=== PATIENT | male | born 1995 | race Caucasian/White ===

== ENCOUNTER 2022-09-12 14:12 | Emergency (ER) | payer BC ==
--- OUTSIDE RECORDS SUMMARY | 2022-09-12 14:15 | XMS REPORT | Continuity of Care Document ---
:1995 Author Organization [facility] t Address [address] [place] [address] Care Team Providers Name Role Phone Sanjay Nicolas Attending Clinician Unavailable Quinten MILLER, Mónica Villa Attending Clinician Unavailable BRE WEINER Attending Clinician Unavailable JUANJO TEMPLE Attending Clinician Unavailable Payers Payer Name Policy Type Policy Number Effective Date Expiration Date S ource OUT OF STATE [id number] BCBS - PPO - BCBS [place] [address] [id number] 2021 Common Spiri t [employer] of 00:00:00 - [place] [facility] Center Problems Condition Condition Condition Status Onset Resolution Last Treating Co mments Source Name Details Category Date Date Treatment Clinician Date [id number] Other Problem Active Common chronic Spirit pain [facility] [id number] Hypercalce Problem Active Com mon jose Spirit - [facility] [id number] Low back Problem Active Comm on pain, Spirit unspecifie - [facility] Allergies, Adverse Reactions, Alerts This patient has no known allergies or adverse reactions. Social History Social Habit Start Date Stop Date Quantity Comments Source History [facility] Alcohol Frequency of Medi cine History [facility] Alcohol Std Drinks of Med icine History [facility] Alcohol Binge of Medicine History of Tobacco Common Spirit - Use [facility] Sex Assigned At Common Sp yamila - [facility] Alcohol intake 2022-08-03 2022-08-03 Ex-drinker [facility] Col lege 00:00:00 00:00:00 (finding) of Medicine Cigarette 2021-09-29 2021-09-29 [facility] pack-years 00:00:00 00:00:00 of Medicine Tobacco use and 2021-09-29 2021-09-29 Smokeless tobacco Ba or [place] exposure 00:00:00 00:00:00 non-user of Medicine Alcohol Comment 2021-07-30 2021-07-30 I drink 2 mixed [facility] or [facility] 00:00:00 00:00:00 drinks once every of Medi cine 2 weeks Exposure to 2021-07-19 2021-07-29 Not sure [facility] SARS-CoV-2 (event) 00:00:00 15:14:00 of Med icine Smoking Status Start Date Stop Date Source Never smoked tobacco [facility] ege of Medicine Medications Ordered Filled Start Stop Current Ordering Indication Dosage Frequency Signature Comments Components Source Medication Medication Date Date Medication? Clinician (SIG) Name Name celecoxib 2022- Yes [id number] 100mg Take 1 [facility] (CELEBREX) -11-02 capsule by Co llege 100 MG 00:00: 04:59 mouth 2 of capsule 00 :00 times Medicin daily as e needed for Pain (back pain) for up to 90 days. cyclobenzap 2022- Yes [id number] 10mg Take 1 [facility] -11-02 Tablet by [facility] (FLEXERIL) 00:00: 04:59 mouth 3 of 10 MG 00 :00 times Medicin tablet daily as e needed (severe pain or muscle spasms) for up to 90 days. celecoxib Yes [id number] 100mg Take 1 [facility] (CELEBREX) 3-31 capsule by Col lege 100 MG 00:00: mouth 2 of capsule 00 times Medicin daily as e needed for Pain (back pain). cyclobenzap Yes [id number] 10mg Take 1 [facility] 3-31 Tablet by [place] ([facility]) 00:00: mouth 3 of 10 MG 00 times Medicin tablet daily as e needed (severe pain or muscle spasms). celecoxib Yes [id number] 100mg Take 1 [facility] (CELEBREX) 3-31 capsule by Col lege 100 MG 00:00: mouth 2 of capsule 00 times Medicin daily as e needed for Pain (back pain). cyclobenzap 2021-0 Yes [id number] 10mg Take 1 [facility] 3-31 Tablet by [place] ([facility]) 00:00: mouth 3 of 10 MG 00 times Medicin tablet daily as e needed (severe pain or muscle spasms). celecoxib 2022- No [id number] 100mg Take 1 [facility] (CELEBREX) 3-- capsule by Co llege 100 MG 00:00: 00:00 mouth 2 of capsule 00 :00 times Medicin daily as e needed for Pain (back pain). cyclobenzap 0 2022- No [id number] 10mg Take 1 [facility] 3-31 - Tablet by [place] ([facility]) 00:00: 00:00 mouth 3 of 10 MG 00 :00 times Medicin tablet daily as e needed (severe pain or muscle spasms). cyclobenzap 2021- No 10mg Take 10 mg [facility] rine 2-17 07-30 by mouth [place] ([facility]) 00:00: 00:00 nightly as of 10 MG 00 :00 needed. Medicin tablet e Cyclobenzap Cyclobenzap No 1{table QD Cyclobenza rine HCl 10 rine HCl 10 t_at_be nany HCl MG MG dtime_a 10 MG s_neede d} Tylenol Tylenol No Tylenol Extra Extra Extra Strength Strength Strength 500 MG 500 MG 500 MG Cyclobenzap Cyclobenzap No 1{table QD Cyclobenza rine HCl 10 rine HCl 10 t_at_be nany HCl MG MG dtime_a 10 MG s_neede d} Tylenol Tylenol No Tylenol Extra Extra Extra Strength Strength Strength 500 MG 500 MG 500 MG Cyclobenzap Cyclobenzap No 1{table QD Cyclobenza rine HCl 10 rine HCl 10 t_at_be nany HCl MG MG dtime_a 10 MG s_neede d} Tylenol Tylenol No Tylenol Extra Extra Extra Strength Strength Strength 500 MG 500 MG 500 MG Celecoxib Celecoxib No Celecoxib Tylenol Tylenol No Tylenol Extra Extra Extra Strength Strength Strength 500 MG 500 MG 500 MG Cyclobenzap Cyclobenzap No 1{table QD Cyclobenza rine HCl 10 rine HCl 10 t_at_be nany HCl MG MG dtime_a 10 MG s_neede d} Vital Signs Vital Name Observation Time Observation Value Comments Source Systolic blood 2022-08-03 20:08:00 109 mm[Hg] [facility] Medicine Diastolic blood 2022-08-03 20:08:00 72 mm[Hg] [facility] Medicine Heart rate 2022-08-03 20:08:00 104 /min [facility] Body temperature 2022-08-03 20:08:00 36.56 [facility] Respiratory rate 2022-08-03 20:08:00 16 /min [facility] Body height 2022-08-03 20:08:00 177.8 cm [facility] Body weight 2022-08-03 20:08:00 63.504 kg [facility] BMI 2022-08-03 20:08:00 20.09 kg/m2 [facility] Oxygen saturation in 2022-08-03 20:08:00 97 /min [facility] blood by [facility] Pulse oximetry Systolic blood 2021-09-29 20:05:00 129 mm[Hg] [facility] Medicine Diastolic blood 2021-09-29 20:05:00 81 mm[Hg] [facility] Medicine Heart rate 2021-09-29 20:05:00 114 /min [facility] Body temperature 2021-09-29 20:05:00 36.39 [facility] Body height 2021-09-29 20:05:00 177.8 cm [facility] Body weight 2021-09-29 20:05:00 63.504 [facility] BMI 2021-09-29 20:05:00 20.09 kg/m2 [facility] Oxygen saturation in 2021-09-29 20:05:00 98 /min [facility] Arterial blood by Medicine Pulse oximetry height 2021-08-18 16:00:00 70.5 [in_i] [facility] weight 2021-08-18 16:00:00 139.2 [lb_av] [facility] temperature 2021-08-18 16:00:00 99.7 [degF] [facility] bmi 2021-08-18 16:00:00 19.69 kg/m2 [facility] oximetry 2021-08-18 16:00:00 97 % [facility] respiratory rate 2021-08-18 16:00:00 17 /min Comm on [facility] blood pressure 2021-08-18 16:00:00 120 mm[Hg] [facility] systolic [facility] blood pressure 2021-08-18 16:00:00 72 mm[Hg] [facility] diastolic [facility] Systolic blood 2021-07-30 18:52:00 112 mm[Hg] [facility] pressure Medicine Diastolic blood 2021-07-30 18:52:00 72 mm[Hg] [facility] pressure Medicine Heart rate 2021-07-30 18:52:00 90 /min [facility] Body temperature 2021-07-30 18:52:00 36.22 [facility] Body height 2021-07-30 18:52:00 177.8 cm [facility] Body weight 2021-07-30 18:52:00 62.143 kg [facility] BMI 2021-07-30 18:52:00 19.66 kg/m2 [facility] height 2021-06-18 11:20:00 70.5 [in_i] [facility] weight 2021-06-18 11:20:00 143 [lb_av] [facility] temperature 2021-06-18 11:20:00 97 [degF] Common S [facility] bmi 2021-06-18 11:20:00 20.23 kg/m2 Common [facility] oximetry 2021-06-18 11:20:00 98 % [facility] respiratory rate 2021-06-18 11:20:00 16 /min Comm on [facility] blood pressure 2021-06-18 11:20:00 119 mm[Hg] Common [facility] - systolic [facility] blood pressure 2021-06-18 11:20:00 71 mm[Hg] Common [facility] - diastolic [facility] height 2020-12-31 16:00:00 70.5 [in_i] Common [facility] weight 2020-12-31 16:00:00 141.0 [lb_av] [facility] temperature 2020-12-31 16:00:00 98.1 [degF] Common [facility] bmi 2020-12-31 16:00:00 19.94 kg/m2 [facility] oximetry 2020-12-31 16:00:00 97 % Common [facility] respiratory rate 2020-12-31 16:00:00 16 /min Comm on [facility] blood pressure 2020-12-31 16:00:00 120 mm[Hg] Common [facility] - systolic [facility] blood pressure 2020-12-31 16:00:00 72 mm[Hg] Common [facility] - diastolic [facility] height 2020-09-03 15:50:00 70.5 [in_i] Common [facility] weight 2020-09-03 15:50:00 136.2 [lb_av] [facility] temperature 2020-09-03 15:50:00 97.3 [degF] [facility] bmi 2020-09-03 15:50:00 19.26 kg/m2 Common S [facility] oximetry 2020-09-03 15:50:00 96 % Common S pirit - [facility] respiratory rate 2020-09-03 15:50:00 17 /min Comm on Spirit - [facility] blood pressure 2020-09-03 15:50:00 118 mm[Hg] [facility] - systolic [facility] blood pressure 2020-09-03 15:50:00 61 mm[Hg] [facility] - diastolic [facility] Procedures Procedure Date / Time Performed Performing Clinician Kary zazueta HANDICAPPED ITA 2022-08-03 15:33:51 [facility] QUANTIFERON TB GOLD PLUS 2021-09-29 15:57:00 [place] [address] TUBES Medicine HEPATITIS B SURFACE AB 2021-09-29 15:57:00 [facility] HEPATITIS B SURFACE 2021-09-29 15:57:00 [facility] ANTIGEN Medicine HEPATITIS C ANTIBODY 2021-09-29 15:57:00 [facility] HEP B CORE ANTIBODY, 2021-09-29 15:57:00 [facility] QUANTIFERON TB GOLD PLUS 2021-09-29 15:44:47 [place] [address] TUBES Medicine HEPATITIS B SURFACE AB 2021-09-29 15:44:47 [facility] HEPATITIS B SURFACE 2021-09-29 15:44:47 [facility] ANTIGEN Medicine HEPATITIS C ANTIBODY 2021-09-29 15:44:47 [facility] HEP B CORE ANTIBODY, 2021-09-29 15:44:47 [facility] AMB REF TO RHEUMATOLOGY 2021-07-30 15:43:27 [facility] Plan of Care Planned Activity Planned Date Details Comments Source Future Scheduled 2022-08-03 COVID-19 Vaccine (#1) [facility] Test 17:39:48 [code = COVID-19 of Medicine Vaccine (#1)] Future Scheduled 2022-08-03 TETANUS SHOT (ADULT) [facility] Test 17:39:48 [code = TETANUS SHOT of [facility] cine (ADULT)] Future Scheduled 2022-08-03 Human immunodeficiency B [facility] Test 17:39:48 virus screening of Medicine (procedure) [code = 617629575] Future Scheduled 2022-08-03 FLU VACCINE > 6 MONTHS [employer] Test 17:39:48 [code = FLU VACCINE > 6 of M edicine MONTHS] Future Scheduled 2022-08-03 XR C-SPINE AP AND [facility] Test 16:05:25 LATERAL AND ODONTOID 3 of Me dicine VWS [code = 96143-7] Future Scheduled 2022-08-03 XR LUMBAR SPINE 2 VIEWS [facility] Test 16:05:08 AP AND LAT [[place] = [place] [address]-3] Future Scheduled 2022-08-03 XR THORACIC SPINE [facility] Test 16:04:54 (COMPLETE) [code = [place] [address]-4] Future Scheduled 2022-08-03 HANDICAPPED PLACARD Ordered: [employer] Test 15:33:51 [code = NOCPT] 08/03/2022 of Medicine Future Scheduled 2022-08-03 XR LUMBAR SPINE 2 VIEWS 1 Occurrences [facility] Test 15:33:51 AP AND LAT [code = [place] [address]-4] 08/03/2022 until 08/04/2023 Future Scheduled 2022-08-03 XR C-SPINE AP AND 1 Occurrences [employer] Test 15:33:51 LATERAL AND ODONTOID 3 starting of Me dicine VWS [code = 74292-4] 08/03/2022 until 08/04/2023 Future Scheduled 2022-08-03 XR THORACIC SPINE 1 Occurrences [employer] Test 15:33:51 (COMPLETE) [code = [place] [address]-0] 08/03/2022 until 08/03/2023 Future Scheduled 2021-09-29 Hepatitis C screening Ba [facility] Test 15:47:35 (procedure) [code = of Medic ine 278221276] Future Scheduled 2021-09-29 QUANTIFERON TB GOLD Ordered: [employer] Test 15:44:47 PLUS 4 TUBES [code = 09/29/2021 of [facility] 54351-7] Future Scheduled 2021-09-29 HEPATITIS B SURFACE AB Ordered: [employer] Test 15:44:47 QUANT [code = 37503-7] 09/29/2021 of Me dicine Future Scheduled 2021-09-29 HEPATITIS B SURFACE Ordered: [employer] Test 15:44:47 ANTIGEN [code = 5196-1] 09/29/2021 of M edicine Future Scheduled 2021-09-29 HEPATITIS C ANTIBODY Ordered: [employer] Test 15:44:47 [code = 04944-5] 09/29/2021 of Medicine Future Scheduled 2021-09-29 HEP B CORE ANTIBODY, Ordered: [employer] Test 15:44:47 TOTAL [code = 32029] 09/29/2021 of Medi cine Future Scheduled 2021-09-29 XR SACROILIAC JOINTS 1 Occurrences [employer] Test 15:44:47 (COMPLETE) [code = [place] [address]-7] 09/29/2021 until 09/29/2022 Future Scheduled 2021-09-29 XR HIPS BILATERAL AP 1 Occurrences [employer] Test 15:44:47 LATERAL W AP PELVIS starting of Medic ine [code = 73988-8] 09/29/2021 until 09/29/2022 Future Scheduled 2021-09-29 XR LUMBAR SPINE AP 1 Occurrences [employer] Test 15:44:47 LATERAL OBLIQUES starting of Medicine FLEXION AND EXTENSION 09/29/2021 until [code = 23116-3] 09/29/2022 Future Scheduled 2021-09-29 MRI SACRUM WO CONTRAST 1 Occurrences [facility] Test 15:44:47 [code = 06708] starting of Medicine 09/29/2021 until 09/29/2022 Future Scheduled 2021-09-29 MRI HIP RIGHT W WO 1 Occurrences [employer] Test 15:44:47 CONTRAST [code = 56444] starting of M edicine 09/29/2021 until 09/29/2022 Future Scheduled 2021-09-29 MRI HIP LEFT W WO 1 Occurrences [employer] Test 15:44:47 CONTRAST [code = 75357] starting of M edicine 09/29/2021 until 09/29/2022 Future Scheduled 2021-09-29 COVID-19 Vaccine (#1) [employer] Test 15:04:56 [code = COVID-19 of Medicine Vaccine (#1)] Future Scheduled 2021-09-29 TETANUS SHOT (ADULT) [employer] Test 15:04:56 [code = TETANUS SHOT of Medi cine (ADULT)] Future Scheduled 2021-09-29 Human immunodeficiency [facility] [employer] Test 15:04:56 virus screening of Medicine (procedure) [code = 963114252] Future Scheduled 2021-09-29 [facility] 15:04:56 [code = FLU VACCINE > 6 of M edicine MONTHS] Future Scheduled 2021-07-30 COVID-19 Vaccine (1) [facility] Test 13:50:38 [code = COVID-19 of Medicine Vaccine (1)] Future Scheduled 2021-07-30 TETANUS SHOT (ADULT) [facility] Test 13:50:38 [code = TETANUS SHOT of Medi cine (ADULT)] Future Scheduled 2021-07-30 Hepatitis C screening Ba [facility] Test 13:50:38 (procedure) [code = of Medic ine 710506050] Future Scheduled 2021-07-30 Human immunodeficiency B [facility] Test 13:50:38 virus screening of Medicine (procedure) [code = 618893305] Future Scheduled 2021-07-30 FLU VACCINE > 6 MONTHS B [facility] Test 13:50:38 [code = FLU VACCINE > 6 of M edicine MONTHS] Encounters Start End Encounter Admission Attending Care Care Encounter Source Date/Time Date/Time Type Type Clinicians Facility Department ID 2021-08-19 Outpatient Nicolas, [facility] [id number] Common 08:20:02 [facility] 2021-07-06 Outpatient Nicolas, [facility] [id number] Common 17:06:02 Sanjay [facility] 2021-06-18 Outpatient Nicolas, [facility] [id number] Common 11:23:02 Sanjay [facility] 2021 Outpatient Nicolas, [facility] [id number] Common 13:45:08 Sanjay 99028 [facility] 2021 Outpatient Nicolas, [facility] [id number] Common 12:52:13 Sanjay [id number] [facility] 2022-08-03 2022-08-03 Outpatient [facility] [id number] [facility] 16:05:25 16:05:25 [facility] e 2022-08-03 2022-08-03 Outpatient BCM BCM [id number] [facility] 16:05:08 16:05:08 [facility] 2022-08-03 2022-08-03 Outpatient BCM BCM [id number] [facility] 16:04:54 16:04:54 [facility] 2022-08-03 2022-08-03 Office Mónica Shipley BCM [id number] [facility] 14:45:00 15:30:00 Visit Daisy AMBULATOR [id number] College Y [id number] of [id number] Medi jada 370 e 2021-10-28 2021-10-28 Outpatient BCM BC [id number] [facility] 12:53:45 12:53:45 [facility] 2021-10-13 2021-10-13 Outpatient BCM [facility] [id number] [facility] 14:55:26 14:55:26 [facility] e 2021-10-13 2021-10-13 Outpatient BCM [facility] [id number] [facility] 14:43:56 14:43:56 Colleg [facility] Medicin e 2021-09-29 2021-09-29 Outpatient BCM [facility] [id number] [facility] 16:29:06 16:29:06 Colleg [facility] of Medicin e 2021-09-29 2021-09-29 Outpatient BCM [facility] [id number] [facility] 16:28:52 16:28:52 Colleg [facility] of Medicin e 2021-09-29 2021-09-29 Outpatient BCM [facility] [id number] [facility] 16:28:37 16:28:37 Colleg [facility] Medicin e 2021-09-29 2021-09-29 Office REGINE, BCM [id number] [place] [address] 14:58:14 16:19:19 Visit BRE AMBULATOR [id number] College Y [id number] of [id number] Medi jada 370 e 2021-09-16 2021-09-16 Outpatient POULOSE, BCM [facility] [id number] [facility] 13:24:08 13:33:26 BRE Ivan e of Medicin e 2021-08-18 2021-08-18 PREV VISIT STLMLC STLMLC [id number] Common 00:00:00 00:00:00 EST AGE Maxwell 16-39 - [facility] 2021-07-30 2021-07-30 Office JASON TEMPLE [id number] [facility] 13:19:31 15:22:03 Visit JUANJO AMBULATOR [id number] College Y [id number] of [id number] [facility] 805 e 2021-07-29 2021-07-29 (TEL) STLMLC STLMLC [id number] Co mmon 00:00:00 00:00:00 [facility] 2021-06-23 2021-06-23 (TEL) STLMLC STLMLC [id number] Co mmon 00:00:00 00:00:00 [facility] 2021-06-18 2021-06-18 OFFICE STLMLC STLMLC [id number] Co mmon 00:00:00 00:00:00 VISIT EST Spir it PT LEVEL 3 [facility] 2021-06-16 2021-06-16 (TEL) STLMLC STLMLC [id number] Co mmon 00:00:00 00:00:00 [facility] 2021-01-02 2021-01-02 (TEL) STLMLC STLMLC [id number] Co mmon 00:00:00 00:00:00 [facility] 2020-12-31 2020-12-31 OFFICE STLMLC STLMLC [id number] Co mmon 00:00:00 00:00:00 VISIT EST Spir it PT LEVEL 3 [facility] 2020-09-03 2020-09-03 OFFICE STLMLC STLMLC [id number] Co mmon 00:00:00 00:00:00 VISIT EST Spir it PT LEVEL 3 [facility] 2020-08-18 2020-08-18 (TEL) STLMLC STLMLC [id number] Co mmon 00:00:00 00:00:00 [facility] 2020-08-14 2020-08-14 [facility] [id number] Common 00:00:00 00:00:00 [facility] Results This patient has no known results.
[2022-09-12] MEDS ORDERED: LIDOCAINE 1% 20 ML MDV ONE (14:39)
[2022-09-12] MEDS ORDERED: BUPIVACAINE 0.5% PF 10 ML VIAL ONE (14:39)
[2022-09-12] MEDS ORDERED: AMOX/K CLAV 875 MG TAB ONE (14:39)
[2022-09-12] MEDS ORDERED: TDAP (DIPHTH,PERTUSS(ACELL),TET VAC) 0.5 ML VIAL IMVAC ONE (14:39)
--- NOTE | 2022-09-12 15:14 | EDPHYS ---
Physician Documentation [facility] Name: Senthil Velazquez Age: 27 yrs Sex: Male : 1995 Arrival Date: 09/12/2022 Time: 14:12 Bed 8 Private MD: ED Physician Gera Sarah HPI: 09/12 14:19 This 27 yrs old Male presents to ER via Unassigned with complaints of dogbite to finger.snw 14:26 pt with dogbite to index fingertip, medial nail pulled from nailbed. snw Historical: - Allergies: 14:38 No Known Allergies; eh3 - Home Meds: 14:38 Celebrex Oral for ankylosing spondylitis [Active]; Flexeril Oral for Pain Control eh3 [Active]; - PMHx: 14:39 Ankylosing spondylitis; eh3 - Immunization history:: Adult Immunizations not up to date, Last tetanus immunization: unknown. - Social history:: Smoking status: Patient denies any tobacco usage or history of. Patient uses alcohol, only on a social basis. ROS: 14:25 Constitutional: Negative for fever, chills, and weight loss, Eyes: Negative for injury, snw pain, redness, and discharge, ENT: Negative for injury, pain, and discharge, Neck: Negative for injury, pain, and swelling, Cardiovascular: Negative for chest pain, palpitations, and edema, Respiratory: Negative for shortness of breath, cough, wheezing, and pleuritic chest pain, Abdomen/GI: Negative for abdominal pain, nausea, vomiting, diarrhea, and constipation, Back: Negative for injury and pain, : Negative for injury, bleeding, discharge, and swelling, MS/Extremity: Negative for injury and deformity, Neuro: Negative for headache, weakness, numbness, tingling, and seizure, Psych: Negative for depression, anxiety, suicide ideation, homicidal ideation, and hallucinations. 14:25 Skin: Positive for avulsion, dogbite to finger. Exam: 14:42 Constitutional: This is a well developed, well nourished patient who is awake, alert, snw and in no acute distress. Head/Face: Normocephalic, atraumatic. Eyes: Pupils equal round and reactive to light, extra-ocular motions intact. Lids and lashes normal. Conjunctiva and sclera are non-icteric and not injected. Cornea within normal limits. Periorbital areas with no swelling, redness, or edema. ENT: Nares patent. No nasal discharge, no septal abnormalities noted. Tympanic membranes are normal and external auditory canals are clear. Oropharynx with no redness, swelling, or masses, exudates, or evidence of obstruction, uvula midline. Mucous membranes moist. Neck: Trachea midline, no thyromegaly or masses palpated, and no cervical lymphadenopathy. Supple, full range of motion without nuchal rigidity, or vertebral point tenderness. No Meningismus. Chest/axilla: Normal chest wall appearance and motion. Nontender with no deformity. No lesions are appreciated. Cardiovascular: Regular rate and rhythm with a normal S1 and S2. No gallops, murmurs, or rubs. Normal PMI, no JVD. No pulse deficits. Respiratory: Lungs have equal breath sounds bilaterally, clear to auscultation and percussion. No rales, rhonchi or wheezes noted. No increased work of breathing, no retractions or nasal flaring. Abdomen/GI: Soft, non-tender, with normal bowel sounds. No distension or tympany. No guarding or rebound. No evidence of tenderness throughout. Back: No spinal tenderness. No costovertebral tenderness. Full range of motion. MS/ Extremity: Pulses equal, no cyanosis. Neurovascular intact. Full, normal range of motion. Neuro: Awake and alert, GCS 15, oriented to person, place, time, and situation. Cranial nerves II-XII grossly intact. Motor strength 5/5 in all extremities. Sensory grossly intact. Cerebellar exam normal. Normal gait. Psych: Awake, alert, with orientation to person, place and time. Behavior, mood, and affect are within normal limits. 14:42 Skin: Appearance: normal except for affected area, injury, bite(s), deep, of the left index finger, nail avulsed from nailbed. Vital Signs: 14:36 BP 107 / 72; Pulse 86; Resp 20; Temp 97.7(IR); Pulse Ox 99% on R/A; Weight 63.5 kg; eh3 Height 5 ft. 10 in. ; 14:54 BP 107 / 72; Pulse 95; Resp 18; Pulse Ox 100% on R/A; Pain 8/10; ld1 14:36 Body Mass Index 20.09 (63.50 kg, 177.8 cm) eh3 14:54 Pain Scale: Adult ld1 Procedures: 14:43 Nerve block: (digital) of left index fingernail Medication: Lidocaine 1% without snw epinephrine Marcaine 0.5%, Amount: 6 mls were injected, Effect: the patient has resolution of the pain, Performed by Rosanne JAMESON Patient tolerated well. MDM: 14:18 Patient medically screened. snw 14:27 Differential diagnosis: closed fracture, nailbed damage, laceration, puncture wound. snw Data reviewed: vital signs, nurses notes. Counseling: I had a detailed discussion with the patient and/or guardian regarding: the historical points, exam findings, and any diagnostic results supporting the discharge/admit diagnosis, the need for outpatient follow up, for definitive care, to return to the emergency department if symptoms worsen or persist or if there are any questions or concerns that arise at home. Response to treatment: the patient's symptoms have markedly improved after treatment. Special discussion: I discussed in detail with the patient the higher chance of wound infection based on his presenting history. Based on the history and exam findings, there is no indication for further emergent testing or inpatient evaluation. I discussed with the patient/guardian the need to see the primary care provider for further evaluation of the symptoms. ED course: Police were notified and are searching for animal. 09/12 14:19 Order name: Suture Tray Setup; Complete Time: 14:37 snw Administered Medications: 14:37 Drug: Boostrix Tdap IM 0.5 ml Route: IM; Site: left deltoid; ld1 14:37 Drug: Bupivacaine Infiltration (0.5 %) 1 vials {Note: Administered by yanet Cantu JELLY FILTER TENDER.} Volume: 10 ml; Route: Infiltration; 14:37 Drug: Lidocaine Infiltration (1 %) 1 vials {Note: Administered by FNP. Pepe} ld1 Volume: 20 ml; Route: Infiltration; 14:37 Drug: Amoxicillin-Clavulanate PO 875 mg Route: PO; ld1 Disposition: 16:45 Co-signature as Attending Physician, Gera Sarah MD I agree with the assessment and kdr plan of care. Disposition Summary: 09/12/22 15:13 Discharge Ordered Location: Home snw Condition: Stable snw Diagnosis - Laceration without foreign body of left index finger with damage to nail snw Followup: snw - With: Emergency Department - When: As needed - Reason: Worsening of condition Followup: snw - With: Private Physician - When: 7 - 10 days - Reason: Staple/Suture removal Discharge Instructions: - Discharge Summary Sheet snw - Cast or Splint Care, Adult snw - Animal Bite, Adult snw Forms: - Work release form snw - Medication Reconciliation Form snw - Thank You Letter snw - Antibiotic Education snw - Prescription Opioid Use snw Prescriptions: - Augmentin 875-125 mg Oral Tablet - take 1 tablet by ORAL route every 12 hours for 10 days; 20 tablet; Refills: 0, snw Product Selection Permitted - Tramadol 50 mg Oral Tablet - take 1 tablet by ORAL route every 8 hours as needed; 12 tablet; Refills: 0, snw Product Selection Permitted Signatures: Gera Sarah MD MD [facility] Rosanne Watkins, ROSEANN-C JELLY FILTER TENDER-Csnw Ambar Hopkins RN RN ld1 Alma Seth RN RN eh3
--- NOTE | 2022-09-12 15:14 | ER ---
Nurse's Notes [facility] Name: Senthil Velazquez Age: 27 yrs Sex: Male : 1995 Arrival Date: 09/12/2022 Time: 14:12 Bed 8 Private MD: Diagnosis: Laceration without foreign body of left index finger with damage to nail Presentation: 09/12 14:36 Chief complaint: Patient states: stray dog bite [place] work. Coronavirus eh3 screen: Vaccine status: Patient reports being unvaccinated. Ebola Screen: No symptoms or risks identified at this time. Initial Sepsis Screen: Does the patient meet any 2 criteria? No. Patient's initial sepsis screen is negative. Does the patient have a suspected source of infection? Yes: Skin breakdown/wound. Risk Assessment: Do you want to hurt yourself or someone else? Patient reports no desire to harm self or others. Onset of symptoms was September 12, 2022. 14:36 Method Of Arrival: Ambulatory [facility] 14:36 Acuity: IONA 3 eh3 Triage Assessment: 14:39 Bite description: bite sustained to left index finger is from animal, by a dog, animal 3 information: vaccination(s) is unknown. General: Appears in no apparent distress. uncomfortable, Behavior is calm, cooperative, appropriate for age. Pain: Complains of pain in left hand. Historical: - Allergies: 14:38 No Known Allergies; eh3 - Home Meds: 14:38 Celebrex Oral for ankylosing spondylitis [Active]; Flexeril Oral for Pain Control eh3 [Active]; - PMHx: 14:39 Ankylosing spondylitis; eh3 - Immunization history:: Adult Immunizations not up to date, Last tetanus immunization: unknown. - Social history:: Smoking status: Patient denies any tobacco usage or history of. Patient uses alcohol, only on a social basis. Screenin:54 [facility] ED Fall Risk Assessment (Adult) History of falling in the last 3 months, ld1 including since admission No falls in past 3 months (0 pts). Abuse screen: Denies threats or abuse. Denies injuries from another. Nutritional screening: No deficits noted. Tuberculosis screening: No symptoms or risk factors identified. Assessment: 14:54 General: Appears in no apparent distress. comfortable, Behavior is calm, cooperative, ld1 appropriate for age. Pain: Complains of pain in right hand and left index fingernail and left hand and left index finger Pain does not radiate. Pain currently is 8 out of 10 on a pain scale. Quality of pain is described as throbbing. Neuro: Level of Consciousness is awake, alert, obeys commands, Oriented to person, place, time, situation. Cardiovascular: Capillary refill < 3 seconds Patient's skin is warm and dry. Respiratory: Airway is patent Respiratory effort is even, unlabored. GI: Abdomen is flat, non-distended. : No signs and/or symptoms were reported regarding the genitourinary system. EENT: No signs and/or symptoms were reported regarding the EENT system. Derm: Skin Skin is pink, warm \T\ dry. Vital Signs: 14:36 BP 107 / 72; Pulse 86; Resp 20; Temp 97.7(IR); Pulse Ox 99% on R/A; Weight 63.5 kg; eh3 Height 5 ft. 10 in. ; 14:54 BP 107 / 72; Pulse 95; Resp 18; Pulse Ox 100% on R/A; Pain 8/10; ld1 14:36 Body Mass Index 20.09 (63.50 kg, 177.8 cm) eh3 14:54 Pain Scale: Adult ld1 ED Course: 14:17 Patient arrived in ED. snw 14:18 Gera Sarah MD is Attending Physician. snw 14:18 Rosanne Watkins [facility]C [facility] snw 14:36 Ambar Hopkins, ROD is Primary Nurse. ld1 14:38 Triage completed. eh3 14:39 Arm band placed on. eh3 14:54 Patient has correct armband on for positive identification. Bed in low position. Call ld1 light in reach. Side rails up X2. Pulse ox on. NIBP on. Door closed. Noise minimized. Warm blanket given. 14:54 Assist provider with laceration repair on left hand Set up tray. Performed by Rosanne ld1 Roland JAMESON. 15:22 IV discontinued, intact, bleeding controlled, No redness/swelling at site. ld1 Administered Medications: 14:37 Drug: Boostrix Tdap IM 0.5 ml Route: IM; Site: left deltoid; ld1 14:37 Drug: Bupivacaine Infiltration (0.5 %) 1 vials {Note: Administered by yanet Cantu.} Volume: 10 ml; Route: Infiltration; 14:37 Drug: Lidocaine Infiltration (1 %) 1 vials {Note: Administered by FNP. Pepe} ld1 Volume: 20 ml; Route: Infiltration; 14:37 Drug: Amoxicillin-Clavulanate PO 875 mg Route: PO; ld1 Medication: 14:54 Vaccine Information Statement (VIS) provided today. Questions and/or concerns ld1 addressed. VIS edition date: September 12, 2022. Outcome: 15:13 Discharge ordered by MD. sheets 15:22 Discharged to home ambulatory. ld1 15:22 Condition: stable 15:22 Discharge instructions given to patient, Instructed on discharge instructions, follow up and referral plans. medication usage, Demonstrated understanding of instructions, follow-up care, medications, Prescriptions given X 2. 15:22 Patient left the ED. ld1 Signatures: Rosanne Watkins FNP-C FNP-Ambar Lord RN RN ld1 Alma Seth RN RN eh3
[2022-09-12 15:29] VITALS: BP 107/72; TEMP 97.7
[2022-09-12 15:35] VITALS: O2SAT 100
== END 2022-09-12 15:22 | disposition home or self-care (01) ==
LOC: ER 14:12
PROC: 0HQGXZZ Repair Left Hand Skin, External Approach (ICD-10-PCS; principal; 2022-09-12)
DX: S61.311A Laceration without foreign body of left index finger with damage to nail, initial encounter (principal); W54.0XXA Bitten by dog, initial encounter
CPT/HCPCS: 64450; 96372; 99284; 12001; J2001

== ENCOUNTER 2024-09-03 08:20 | Day surgery (SDC) | payer BC ==
[2024-09-03 08:31] LABS: Absolute Lymphocytes (CBC) 1.9 K/uL (0.7-4.9); Absolute Neutrophil 4.6 K/uL (1.8-8.0); Basophils % 0.7 % (0-1.3); Eosinophils % 4.3 % (0-4.4); Hematocrit 40.8 % (39.6-49.0); Hemoglobin 13.6 g/dL (13.6-17.9); Lymphocytes % 24.9 % (15.3-44.8); MCH 25.8 pg (27.0-35.0); MCHC 33.4 g/dL (32.0-36.0); MCV 77.2 fL (80-100); MPV 7.3 fL (7.6-11.3); Monocytes % 8.8 % (3.3-12.3); Neutrophils % 61.3 % (41.7-73.7); Nucleated Red Blood Cells % 0.1 % (0-0); Platelets 338 thou/uL (152-406); RBC Red Blood Cell Count 5.28 M/uL (4.33-5.43); Red Cell Distribution Width 15.8 % (12.1-15.2)
[2024-09-03 08:32] LABS: Absolute Basophils 0.1 K/uL (0-0.5); Absolute Eosinophils 0.3 K/uL (0-0.5); Absolute Monocytes 0.7 K/uL (0.1-1.3)
[2024-09-03] MEDS: Ringers Lactate 1,000 ML IV ONE (08:54)
[2024-09-03 09:03] LABS: Albumin 3.6 g/dL (3.4-5.0); Anion Gap 7.8 mEq/L (5.0-15.0); Bilirubin Direct 0.2 mg/dL (0-0.2); Bilirubin Indirect, Calculated 0.8 mg/dL (0.2-0.8); Globulin 3.6 g/dL (2.3-3.5); Potassium 3.8 mEq/L (3.5-5.1); Protein, Total 7.2 g/dL (6.4-8.2)
[2024-09-03] MEDS ORDERED: ONDANSETRON 4 MG/2 ML VIAL ONE (09:44)
[2024-09-03] MEDS ORDERED: dexAMETHasone 10 MG/ML VIAL ONE (09:44)
[2024-09-03] MEDS ORDERED: KETOROLAC 30 MG/ML INJ ONE (09:44)
[2024-09-03] MEDS ORDERED: ROCURONIUM 50 MG/5 ML VIAL IV ONE (09:44)
[2024-09-03] MEDS ORDERED: MIDAZOLAM HCL 2 MG/2 ML INJ ONE (09:44)
[2024-09-03] MEDS ORDERED: propofoL 200 MG/20 ML VIAL IV ONE (09:44)
[2024-09-03] MEDS ORDERED: FENTANYL CITR 100 MCG/2 ML ONE (09:44)
[2024-09-03] MEDS ORDERED: LIDOCAINE 2% MPF 5 ML VIAL ONE (09:44)
[2024-09-03] MEDS: CEFOXITIN SODIUM 1 GM/VIAL ONE (09:53)
[2024-09-03] MEDS: BUPIVACAINE 0.5% PF 10 ML VIAL ONE ×2 (10:29→11:01)
[2024-09-03] MEDS ORDERED: Mastisol Adhesive Liq ONE (11:06)
[2024-09-03] MEDS ORDERED: GLYCOPYRROLATE 0.2 MG/ML SYR ONE (11:11)
[2024-09-03] MEDS ORDERED: NEOSTIGMINE 1 MG/ML -10 ML VIAL ONE (11:11)
--- NOTE | 2024-09-03 11:16 | P.BOP ---
Preoperative diagnosis: gallbladder polyps, biliary dyskinesia, RUQ abd pain, tender umbilical erick Postoperative diagnosis: same, reducible tender umbilical hernia Primary procedure: 1. Laparoscopic cholecystectomy Secondary procedure: 2. umbilical hernia repair 2cm Estimated blood loss: <10cc Specimen: gb Findings: as above Anesthesia: General Complications: None Transferred to: Recovery Room Condition: Good
[2024-09-03] MEDS ORDERED: Ringers Lactate 1,000 ML IV ONE (11:23)
[2024-09-03] MEDS: ONDANSETRON 4 MG/2 ML VIAL ONE (11:42)
[2024-09-03] MEDS: HYDROMORPHONE HCL 1 MG/ML INJ ONE (11:45)
[2024-09-03] MEDS: HYDROCODONE/APAP 10/325 TAB ONE (11:59)
[2024-09-03 12:08] VITALS: O2SAT 98
--- NOTE | 2024-09-03 12:32 | OP ---
Date of Procedure: 09/03/2024 Surgeon: Sudeep Morley MD Preoperative Diagnoses: Gallbladder polyps, biliary dyskinesia, right upper quadrant abdominal pain. Postoperative Diagnoses: Gallbladder polyps, biliary dyskinesia, right upper quadrant abdominal pain . Procedure: Laparoscopic cholecystectomy. Estimated Blood Loss: Less than 10 cc. Specimen: Gallbladder. Findings: As above. Anesthesia: General plus local. Complications: None. Indications: This is a case of a male, who came to us with right upper quadrant abdominal pain, bili stephen dyskinesia, gallbladder polyps. Options were discussed with the patient. Since I am following u p the patient, the polyps getting little bit bigger. He wants the gallbladder removed. The benefits , alternatives, and risks of laparoscopic, possible open cholecystectomy fully explained, which inclu de, but not limited to, infection, bleeding, damage to adjacent structures, anesthesia complication, choledocholithiasis, bile leak, pancreatitis, MS, and even . He also understands this may not r elieve any symptoms, he might need more than one surgical intervention. He also have a tender umbili urbano hernia, wants to repair at the same time. So we discussed pros and cons of hernia repair and adv ised the importance of no heavy lifting. He signed a consent. Description Of Procedure: Patient was brought to the operating room, placed in supine position. Ane sthesia was induced without complication. Abdominal area was prepped and draped in a sterile fashion . Marcaine 0.5% was injected for local anesthetic, followed by sharp incision of the skin in the per iumbilical region. Patient has an umbilical hernia in that region, so we made a curvilinear incision and the skin from umbilical sac, opened the hernia sac, removed the hernia sac. The fasci al edges seemed to be strong, so we are going to repair that primary. Before that, we put Vicryl #1 inside the fascia. Barrett trocar was carefully introduced. Pneumoperitoneum was obtained. I placed 3 more trocars in the right upper quadrant under direct visualization. At that moment, I proceeded to inspect the gallbladder. We did not see at least any extraluminal masses. The gallbladder looks smooth. There are some adhesions of omentum to the gallbladder. They were carefully ligated with th e help of LigaSure to release the gallbladder, but I do not see any masses there. At that moment, we have a grasper in the fundus of the gallbladder, another grasper in the infundibulum, retracting the gallbladder in the inferolateral fashion exposing the triangle of Calot and obtaining critical view. Cystic duct and cystic artery were clearly isolated and freed circumferentially, and a connection b etween those and the gallbladder were clearly identified. I proceeded to ligate those by using at le ast 3 clips proximal, 1 clip distal, ligation in the middle. Same was done with the cystic artery. No bile leak. No bleeding. Hepatic arteries and common bile duct were protected at all times. Gall bladder was removed from the liver using Bovie cauterizer and removed through the abdominal cavity us ing EndoCatch through the umbilical incision. The gallbladder was sent intact to the Pathology to [facility] for any other pathology. At that moment, I put the cameras back. No bile leak. No bleeding. G allbladder area was inspected. The area where the adhesions were removed were inspected with no blee ding. At that moment, I proceeded to remove the trocars under direct vision, deflated pneumoperitone um, closed the fascia and umbilical hernia with #1 Vicryl, irrigated subcutaneous tissue, closed that with 3-0 chromic and the skin in a subcuticular fashion with 3-0 chromic and Steri-Strips on top. S ponge counts and instrument counts were correct. Patient tolerated the procedure well. Patient was sent to Recovery in stable condition. PB/LINDSEY Voice ID: [id number] Report ID: [id number]
--- NOTE | 2024-09-03 12:37 | DS ---
Diagnoses: Gallbladder polyps, biliary dyskinesia, right upper quadrant abdominal pain. Procedure: Laparoscopic cholecystectomy. Disposition: Home. Activity: As tolerated. No heavy lifting. Discharge Instructions: Follow up in my office in 1 week. Call for appointment at [phone]. Keep a anabelle dry for 48 hours, then may shower. Keep Steri-Strip intact. PB/LINDSEY Voice ID: [id number] Report ID: [id number]
[2024-09-03 14:41] VITALS: BP 120/68; TEMP 97
== END 2024-09-03 13:40 | disposition home or self-care (01) ==
LOC: OR 08:20
PROVIDERS: ATTEND Surgery
PROC: 0FT44ZZ Resection of Gallbladder, Percutaneous Endoscopic Approach (ICD-10-PCS; principal; 2024-09-03 08:30)
DX: K81.1 Chronic cholecystitis (principal); K82.4 Cholesterolosis of gallbladder; K42.9 Umbilical hernia without obstruction or gangrene; R10.11 Right upper quadrant pain; K82.8 Other specified diseases of gallbladder
CPT/HCPCS: 85025; 80048; 36415; 80076; 88302; 88304; 83690; 47480; L0625; J2704; J2710; J2003; J2250; J3010; J1100; J1171; J0694; J2405 ×2; J7120 ×2